=== PATIENT | male | born 1965 | race Caucasian/White ===

== ENCOUNTER 2020-08-23 04:57 | Inpatient (IN) | payer SELFPAY ==
[~2020-08-23] VITALS: Ht 175.3 cm; Wt 121.7 kg
[2020-08-23 05:37] LABS: BASOPHILS ABSOLUTE AUTO 0.01 K/mm3 (0.00-0.23); BASOPHILS PERCENT AUTO 0 % (0-2); EOSINOPHILS PERCENT AUTO 0 % (0-6); Hematocrit 44.9 % (37.0-53.0); Hemoglobin 14.8 g/dL (13.5-17.5); Mean Corpuscular Volume 88 fL (80-100); Platelet Count 174 K/mm3 (150-400); RDW Coefficient Variation 13.7 % (11.7-14.2); RDW Standard Deviation 44.4 fL (35.1-46.3); Red Blood Cell Count 5.11 M/mm3 (4.30-5.90); White Blood Cell Count 4.56 K/mm3 (4.00-11.30)
[2020-08-23 05:45] LABS: IMMATURE GRAN ABSOLUTE AUTO 0.01 K/mm3 (0.00-0.10); IMMATURE GRAN PERCENT AUTO 0 % (0-1); LYMPHOCYTES ABSOLUTE AUTO 0.09 K/mm3 (0.84-5.20); LYMPHOCYTES PERCENT AUTO 2 % (21-46); MONOCYTES ABSOLUTE AUTO 0.02 K/mm3 (0.16-1.47); MONOCYTES PERCENT AUTO 0 % (4-13); NEUTROPHILS ABSOLUTE AUTO 4.43 K/mm3 (1.96-9.15); NEUTROPHILS PERCENT AUTO 97 % (41-73)
[2020-08-23 06:00] LABS: Alanine Aminotransfer (ALT/SGP 29 U/L (12-78); Albumin, Blood 3.3 g/dL (3.4-5.0); Alk Phos 153 U/L (50-136); Anion Gap 10 mmol/L (6-16); Aspartate Aminotrans (AST/SGOT 19 U/L (12-37); Bilirubin, Total 2.1 mg/dL (0.1-1.0); Blood Urea Nitrogen 22 mg/dL (8-24); Bun/Creatinine Ratio 18.3 (12.0-20.0); CO2, Blood 19 mmol/L (21-32); Calcium, Blood 8.9 mg/dL (8.5-10.1); Chloride, Blood 105 mmol/L (98-108); Globulin, Blood 3.4 g/dL (2.2-4.0); Glomerular Filtration Rate >60 (60-); Glucose, Blood 250 mg/dL (70-99); Potassium, Blood 3.8 mmol/L (3.5-5.5); Sodium, Blood 134 mmol/L (136-145); Total Protein, Blood 6.7 g/dL (6.4-8.2); Troponin I <0.015 ng/mL (0.000-0.040)
[2020-08-23] MEDS ORDERED: ATOR20 PO (06:54)
[2020-08-23] MEDS ORDERED: Glyburide5 MG PO (06:54)
[2020-08-23] MEDS ORDERED: LOSA50 PO (06:55)
[2020-08-23] MEDS ORDERED: GLUCOPHAGE1000 M2 PO (06:55)
[2020-08-23] MEDS ORDERED: METOPROLOL SUCC25 MG PO (06:55)
[2020-08-23 11:58] LABS: Source, Urine Clean Catch
[2020-08-23 12:03] LABS: Appearance, Urine Clear (Clear); Blood, Urine Neg (Neg); Color, Urine Yellow (P-Yellow); Glucose Qualitative, Urine 4+ (Neg); Ketones, Urine 3+ (Neg); Leukocyte Esterase, Urine Neg (Neg); Nitrite, Urine Neg (Neg); Protein, Urine 2+ (Neg); Urobilinogen, Urine NORM (Normal)
[2020-08-23 12:07] LABS: Bilirubin, Urine 1+ (Neg)
[2020-08-23 12:11] LABS: Red Blood Cells, Urine 0-2 /hpf (0-2)
[2020-08-23 12:12] LABS: Bacteria Rare /hpf; Granular Casts 0-2 /lpf (0); Mucus Light (0-Heavy); Squamous Epithelial Cells Few /hpf (Few); WBC Cast 0-2 /lpf (0)
--- NOTE | 2020-08-23 12:19 | NUR ---
PT ARRIVED AT THE UNIT FORM ERD VIA STRETCHER, REPORT RECEIVED FROM ANTONINO JAMISON. PT IS HERE FOR SURGERY TODAY DUE TO APPENDICITIS AND LOW BP. VITALS UPON ARRIVAL HRR ST 100'S, BP SYSTOLIC 99, SATS ABOVE 95% ON RA, AFEBRILE. PT WAS GIVEN DILAUDID 0.5MG FOR PAIN PRIOR TO SURGERY. PT NOW CURRENTLY IN THE PROCEDURE.
--- NOTE | 2020-08-23 17:49 | NUR ---
PT SUMMARY: PT'S LAP APPENDECTOMY PROCEDURE WAS SUCCESSFUL TODAY, PT HAS 3 ABDOMINAL INCISION SITES COVERED WITH GAUZE CDI. ANCELMO DRAIN, WITH SEROSANGUINEOUS DRAINAGE. VITALS STABLE HRR SR 80-90'S, BP SYSTOLIC 90-110'S, SATS ABOVE 95% ON RA, AFEBRILE. PT DENIES ANY PAIN AT THIS TIME, ON CLEAR LIQUID DIET, DR HIKCS CAME TO SEE PT AFTER SURGERY TO START PT ON INSULIN D/T INCREASE CBG. PT IS ALERT AND ORIENTED. NO OTHER ISSUES ENCOUNTERED FOR THE SHIFT. PT ON IV ABO 3G UNASYN Q6HRS, NS RUNNING AT 75MLS/HR. WILL REPORT TO ONCOMING SHIFT
--- NOTE | 2020-08-23 18:32 | NUR ---
PT PASSED FLATUS X2 AND AMBULATED IN THE HALLWAY BACK TO HIS ROOM. PT RATED PAIN 5/10 UPON GETTING BACK TO BED, NORCO 5/325 WAS GIVEN. PT NOW BACK IN BED, ANCELMO DRAIN WITH 40CC OUTPUT. NO OTHER ISSUES AT THIS TIME WILL MONITOR PT
--- NOTE | 2020-08-23 19:08 | NUR ---
REPORT GIVEN TO JAMAR JAMISON, PT STATUS CHANGED TO SURGICAL. PT TO TRANSFER TO ROOM 213.
--- NOTE | 2020-08-23 20:05 | NUR ---
PT TO ROOM 213 AT 1930. PT A/O X4. SBA TO TRANSFER FROM WHEELCHAIR TO BED. REPORTS PAIN MANAGED AT THIS TIME. DRESSINGS TO ABD CDI. DENIES FURTHER NEEDS. CALL LIGHT IN REACH.
--- NOTE | 2020-08-24 04:14 | NUR ---
SHIFT SUMMARY PT IS A/O X4. REPOSITIONS SELF IN BED. SBA UP TO BATHROOM FOR IV LINES. PAIN MANAGED WITH PO PAIN MED PER ORDERS. PT TOLERATING CLEAR LIQUIDS W/O N/V. PT VOIDING AND PASSING FLATUS. DRESSINGS TO ABD CDI. ANCELMO DRAIN IN PLACE TO LLQ. PT CURRENTLY RESTING IN BED WITH CALL LIGHT IN REACH.
[2020-08-24 06:13] LABS: BASOPHILS ABSOLUTE AUTO 0.04 K/mm3 (0.00-0.23); BASOPHILS PERCENT AUTO 0 % (0-2); EOSINOPHILS PERCENT AUTO 0 % (0-6); Hematocrit 38.7 % (37.0-53.0); Hemoglobin 12.4 g/dL (13.5-17.5); IMMATURE GRAN ABSOLUTE AUTO 0.35 K/mm3 (0.00-0.10); IMMATURE GRAN PERCENT AUTO 2 % (0-1); LYMPHOCYTES ABSOLUTE AUTO 0.61 K/mm3 (0.84-5.20); LYMPHOCYTES PERCENT AUTO 3 % (21-46); MONOCYTES PERCENT AUTO 6 % (4-13); Mean Corpuscular HGB 29.2 pg (26.0-34.0); Mean Corpuscular Volume 91 fL (80-100); Mean Platelet Volume 11.5 fL (9.1-12.4); NEUTROPHILS ABSOLUTE AUTO 21.63 K/mm3 (1.96-9.15); NEUTROPHILS PERCENT AUTO 90 % (41-73); Platelet Count 147 K/mm3 (150-400); RDW Coefficient Variation 14.6 % (11.7-14.2); Red Blood Cell Count 4.24 M/mm3 (4.30-5.90); White Blood Cell Count 24.03 K/mm3 (4.00-11.30)
--- NOTE | 2020-08-24 16:18 | NUR ---
Shift summary Patient tolerating regular diet. Incisions CDI. ANCELMO drain putting out small amount cloudy serosanguinous fluid. Patient voiding. Patient ambulating in moise independently. Pain controlled with [place]. Call light within patient reach.
--- NOTE | 2020-08-25 03:42 | NUR ---
SHIFT SUMMARY PT IS A/O X4, IND IN ROOM. TOLERATING PO INTAKE WITH NO N/V. PT VOIDING AND PASSING FLATUS. HAS BEEN UP IN ROOM MULT TIMES DURING THE SHIFT. DRESSINGS TO ABD CDI. PT HAS REPORTED NO NEW CONCERNS OVERNIGHT. PAIN IS BEING MANAGED WITH PO PAIN MEDS PER ORDERS. NO NEW CHANGES.
--- NOTE | 2020-08-25 08:22 | NUR ---
PT EATING REGULAR BREAKFAST, TOLERATING WELL, DENIES ANY PAIN OR NAUSEA AT THIS TIME, REPORTS AMBULATING FREQUENTLY AND FEELS "PRETTY GOOD" TODAY, CONT. TO MONITOR FOR ANY CHANGES.
[2020-08-25 08:31] LABS: BASOPHILS ABSOLUTE AUTO 0.02 K/mm3 (0.00-0.23); BASOPHILS PERCENT AUTO 0 % (0-2); EOSINOPHILS ABSOLUTE AUTO 0.03 K/mm3 (0.00-0.68); EOSINOPHILS PERCENT AUTO 0 % (0-6); Hematocrit 41.2 % (37.0-53.0); IMMATURE GRAN ABSOLUTE AUTO 0.07 K/mm3 (0.00-0.10); IMMATURE GRAN PERCENT AUTO 1 % (0-1); LYMPHOCYTES ABSOLUTE AUTO 0.68 K/mm3 (0.84-5.20); LYMPHOCYTES PERCENT AUTO 5 % (21-46); MONOCYTES ABSOLUTE AUTO 0.85 K/mm3 (0.16-1.47); MONOCYTES PERCENT AUTO 7 % (4-13); Mean Corpuscular HGB 28.8 pg (26.0-34.0); Mean Corpuscular HGB Conc 31.6 g/dL (31.5-36.5); Mean Corpuscular Volume 91 fL (80-100); Mean Platelet Volume 11.4 fL (9.1-12.4); NEUTROPHILS ABSOLUTE AUTO 11.28 K/mm3 (1.96-9.15); NEUTROPHILS PERCENT AUTO 87 % (41-73); Platelet Count 155 K/mm3 (150-400); RDW Coefficient Variation 14.4 % (11.7-14.2); RDW Standard Deviation 48.3 fL (35.1-46.3); Red Blood Cell Count 4.52 M/mm3 (4.30-5.90); White Blood Cell Count 12.93 K/mm3 (4.00-11.30)
--- NOTE | 2020-08-25 17:51 | NUR ---
SUMMARY C/O 5/ INCISIONAL PAIN, 1 NORCO GIVEN, DENIES ANY NAUSEA, TOLERATING REGULAR DIET WELL, AMBULATED DOWN THE HALLS X3 TODAY, ANCELMO CONT. TO DRAIN SEROUS DRAINAGE, NO ACUTE CHANGES THIS SHIFT.
--- NOTE | 2020-08-26 00:15 | NUR ---
NOISE PT COMPLAINED OF NOISE FROM HALLWAY, PROVIDED W/ EAR PLUGS AND OFFERED TO CLOSE PT DOOR.
[2020-08-26 05:09] LABS: BASOPHILS ABSOLUTE AUTO 0.01 K/mm3 (0.00-0.23); BASOPHILS PERCENT AUTO 0 % (0-2); EOSINOPHILS ABSOLUTE AUTO 0.04 K/mm3 (0.00-0.68); EOSINOPHILS PERCENT AUTO 0 % (0-6); Hematocrit 40.4 % (37.0-53.0); Hemoglobin 12.9 g/dL (13.5-17.5); IMMATURE GRAN ABSOLUTE AUTO 0.05 K/mm3 (0.00-0.10); IMMATURE GRAN PERCENT AUTO 1 % (0-1); LYMPHOCYTES ABSOLUTE AUTO 1.35 K/mm3 (0.84-5.20); LYMPHOCYTES PERCENT AUTO 14 % (21-46); MONOCYTES ABSOLUTE AUTO 0.85 K/mm3 (0.16-1.47); MONOCYTES PERCENT AUTO 9 % (4-13); Mean Corpuscular HGB 28.9 pg (26.0-34.0); Mean Corpuscular HGB Conc 31.9 g/dL (31.5-36.5); Mean Corpuscular Volume 90 fL (80-100); Mean Platelet Volume 11.3 fL (9.1-12.4); NEUTROPHILS ABSOLUTE AUTO 7.19 K/mm3 (1.96-9.15); NEUTROPHILS PERCENT AUTO 76 % (41-73); Platelet Count 156 K/mm3 (150-400); RDW Coefficient Variation 13.9 % (11.7-14.2); RDW Standard Deviation 46.5 fL (35.1-46.3); Red Blood Cell Count 4.47 M/mm3 (4.30-5.90); White Blood Cell Count 9.49 K/mm3 (4.00-11.30)
--- NOTE | 2020-08-26 05:39 | NUR ---
SHIFT SUMMARY LAP APPY POD3, A/O X4, VSS, TOLERATING PO, VOIDING WELL, INDEPENDENT IN ROOM, TAKING MULTIPLE WALKS IN HALLWAY, PAIN WELL CONTROLLED PER EMAR. PT C/O TROUBLE SLEEPING DUE TO NOISE, OFFERED PT EARPLUGS AND CLOSED ROOM DOOR, PT REPORTED IMPROVED SLEEP. CALL LIGHT IN REACH, WILL CONTINUE TO MONITOR AND REPORT TO ONCOMING DAY RN.
[2020-08-26] MEDS ORDERED: Norco 5-325 Ta1 EACH PO (09:53)
[2020-08-26] MEDS ORDERED: AMOCLA500 PO (09:53)
--- NOTE | 2020-08-26 13:29 | NUR ---
DISCHARGE PT AMBULATED OUT. DECLINED W/C. PAIN WELL MANAGED. AMBULATING. PASSING GAS AND BMS TODAY. EATING, DRINKING, VOIDING.
== END 2020-08-26 13:25 | disposition home or self-care (01) | DRG 340 ==
LOC: ER 04:57 → PCU 10:39 → SURS 19:27
PROVIDERS: Emergency Medicine; Internal Medicine; ADMIT Surgery
PROC: 0DTJ4ZZ Resection of Appendix, Percutaneous Endoscopic Approach (ICD-10-PCS; principal; 2020-08-23 12:15)
DX: K35.32 Acute appendicitis with perforation, localized peritonitis, and gangrene, without abscess (principal); I10 Essential (primary) hypertension; I25.10 Atherosclerotic heart disease of native coronary artery without angina pectoris; I25.2 Old myocardial infarction; Z95.5 Presence of coronary angioplasty implant and graft; E11.65 Type 2 diabetes mellitus with hyperglycemia
CPT/HCPCS: 36415; 51798; 74176; 80053; 81001; 82947; 83690; 84484; 85025; 85027; 88304; 93005; 93010; 96361; 96365; 96375; 99285-25; A9270-GY; J0295; J1100; J1170; J1650; J1885; J2370; J2405; J2704; J3010; J7030; J7120; U0003